=== PATIENT | male | born 1955 | race Caucasian/White ===

== ENCOUNTER 2019-08-22 16:22 | Inpatient (IN) | payer OTHER, MEDICARE ==
[~2019-08-22] VITALS: Ht 182.9 cm; Wt 107.4 kg
[~2019-08-22 16:22] MED LIST: ASPI81CH PO; ATOR10 PO; CARV3.125 PO; FURO40 PO; Prinivil10 MG PO
[2019-08-22 16:47] LABS: BASOPHILS ABSOLUTE AUTO 0.05 K/mm3 (0.00-0.23); BASOPHILS PERCENT AUTO 0 % (0-2); EOSINOPHILS ABSOLUTE AUTO 0.03 K/mm3 (0.00-0.68); EOSINOPHILS PERCENT AUTO 0 % (0-6); Hematocrit 25.1 % (37.0-53.0); Hemoglobin 8.4 g/dL (13.5-17.5); IMMATURE GRAN ABSOLUTE AUTO 0.24 K/mm3 (0.00-0.10); IMMATURE GRAN PERCENT AUTO 2 % (0-1); LYMPHOCYTES ABSOLUTE AUTO 4.19 K/mm3 (0.84-5.20); LYMPHOCYTES PERCENT AUTO 27 % (21-46); MONOCYTES ABSOLUTE AUTO 0.95 K/mm3 (0.16-1.47); MONOCYTES PERCENT AUTO 6 % (4-13); Mean Corpuscular HGB 29.3 pg (26.0-34.0); Mean Corpuscular HGB Conc 33.5 g/dL (31.5-36.5); Mean Corpuscular Volume 88 fL (80-100); Mean Platelet Volume 9.3 fL (9.1-12.4); NEUTROPHILS ABSOLUTE AUTO 10.11 K/mm3 (1.96-9.15); NEUTROPHILS PERCENT AUTO 65 % (41-73); Platelet Count 335 K/mm3 (150-400); RDW Coefficient Variation 12.2 % (11.7-14.2); RDW Standard Deviation 39.3 fL (35.1-46.3); Red Blood Cell Count 2.87 M/mm3 (4.30-5.90); White Blood Cell Count 15.57 K/mm3 (4.00-11.30)
[2019-08-22 17:08] LABS: Alanine Aminotransfer (ALT/SGP 24 U/L (12-78); Albumin, Blood 2.8 g/dL (3.4-5.0); Albumin/Globulin Ratio 0.9 (0.8-1.8); Alk Phos 56 U/L (50-136); Anion Gap 5 mmol/L (6-16); Aspartate Aminotrans (AST/SGOT 18 U/L (12-37); Bilirubin, Total 0.2 mg/dL (0.1-1.0); Blood Urea Nitrogen 52 mg/dL (8-24); Bun/Creatinine Ratio 45.6 (12.0-20.0); CO2, Blood 25 mmol/L (21-32); Calcium, Blood 7.8 mg/dL (8.5-10.1); Chloride, Blood 103 mmol/L (98-108); Creatinine, Blood 1.14 mg/dL (0.60-1.20); Glomerular Filtration Rate >60 (60-); Glucose, Blood 294 mg/dL (70-99); Potassium, Blood 4.5 mmol/L (3.5-5.5); Sodium, Blood 133 mmol/L (136-145); Total Protein, Blood 5.8 g/dL (6.4-8.2); Troponin I 0.015 ng/mL (0.000-0.040)
[2019-08-22] MEDS ORDERED: Buspirone HCl10 MG PO (19:59)
[2019-08-22] MEDS ORDERED: Carvedilol25 MG PO (19:59)
--- NOTE | 2019-08-22 21:45 | NUR ---
RECEIVED PT FROM [facility]. PT IS AWAKE AND OREINTED TO PERSON AND PLACE AND FOLLOWS COMMANDS. 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 PT IS ABLE TO COMMUNICATE HIS NEEDS AND A GOOD PORTION OF HIS PAST MEDICAL HISTORY. HE IS SLOW TO RESPOND HE HAS DIFFICULTY WITH HIS WORDS IF HE RESPONDS TOO QUICKLY. ECG SHOWS ST 100-110'S. SBP 90-110'S. LUNGS CLEAR. NO NOTED SOB. TOLERATNG SIPS OF WATER WITHOUT DIFFICULTY. PT DENIES NAUSEA, BUT REPORTS TENDERNESS TO LEFT, LOWER QUADRANT WITH PALPATION. PT INCONTINENT OF FOUL SMELLING URINE. PT STATES THAT HE HAS DIFFICULTY VOIDING AND ONLY VOIDS A SMALL AMOUNT AT A TIME. ESPERANZA CARE DONE AND ADULT PULL-UP PLACED. PT ABLE TO REPOSITON HIMSELF IN BED.
--- NOTE | 2019-08-22 22:30 | NUR ---
PT REPORTS 10/10 LEFT LOWER QUADRANT PAIN AND INTERMITTENT NAUSEA. DR. FOSTER NOTIFIED AND ORDER GIVEN FOR DILAUDID-SEE EMAR.
--- NOTE | 2019-08-23 | NUR ---
PT RESTING QUIETLY WHEN NOT DISTURBED-REPOSITONING HIMSELF IN BED FREQUENTLY.
--- NOTE | 2019-08-23 02:55 | NUR ---
PT STATES THAT HE IS FEELING "BETTER." PT SITTING UP IN BED WATCHING TV WITHOUT NOTED DISTRESS.
[2019-08-23 03:30] LABS: Hematocrit 22.2 % (37.0-53.0); Hemoglobin 7.4 g/dL (13.5-17.5); Mean Corpuscular HGB Conc 33.3 g/dL (31.5-36.5); Mean Corpuscular Volume 87 fL (80-100); Mean Platelet Volume 9.2 fL (9.1-12.4); Platelet Count 304 K/mm3 (150-400); RDW Coefficient Variation 12.5 % (11.7-14.2); RDW Standard Deviation 39.8 fL (35.1-46.3); Red Blood Cell Count 2.55 M/mm3 (4.30-5.90); White Blood Cell Count 14.79 K/mm3 (4.00-11.30)
[2019-08-23 03:49] LABS: Anion Gap 6 mmol/L (6-16); Blood Urea Nitrogen 52 mg/dL (8-24); Bun/Creatinine Ratio 42.3 (12.0-20.0); CO2, Blood 26 mmol/L (21-32); Calcium, Blood 7.9 mg/dL (8.5-10.1); Chloride, Blood 104 mmol/L (98-108); Creatinine, Blood 1.23 mg/dL (0.60-1.20); Glomerular Filtration Rate >60 (60-); Glucose, Blood 156 mg/dL (70-99); Potassium, Blood 4.4 mmol/L (3.5-5.5); Sodium, Blood 136 mmol/L (136-145); Troponin I <0.015 ng/mL (0.000-0.040)
--- NOTE | 2019-08-23 06:36 | NUR ---
PT HAS RESTED INTERMITTENTY SINCE MED WITH DILAUDID 1 MG IVP @ 2230. VS WDL-NO NOTED DISTRESS.
--- NOTE | 2019-08-23 06:49 | NUR ---
PT REPORTS 8/10 LLQ PAIN. PT MOANING AND WRITHING IN BED-MED WITH DILAUDID 0.5 MG IVP X 1.
--- NOTE | 2019-08-23 08:51 | NUR ---
ASSUMED CARE OF PT AT 0700. REPORT FROM DIANE GARCIA. PT RESTING IN BED. RESPONSIVE TO PAINFUL STIMULI. PT SLOW TO RESPOND, APHASIA. ANSWERS QUESTIONS APPROPRIATELY. FOLLOWS COMMANDS. REPORTS PAIN TO LLQ, MEDICATED ON NOC SHIFT, STATES PAIN IMPROVED. PT REPORTS LAST BM ONE WEEK AGO, STATES "I KNOW IM BLEEDING" REPORTS HX OF GI BLEEDS, REPORTS DARK STOOLS OVER LAST FEW WEEKS. ABD ROUND, SOFT, TENDER ON LEFT SIDE. BT X 4. LUNGS CLEAR. MAEW. PT TOLERATING CLEAR LIQUID DIET WELL. USES URINAL IN BED. HGB 7.4 THIS AM, CURRENTLY TRANSFUSING ONE UNIT PRBCS AT THIS TIME. VSS. WILL CONTINUE TO MONITOR.
--- NOTE | 2019-08-23 11:48 | NUR ---
Echocardiogram completed.
--- NOTE | 2019-08-23 13:20 | NUR ---
CARE ASSUMED CARE AND REPORT ASSUMED FROM BRENT GARCIA. PT SLEEPING IN BED, BUT EASILY AROUSABLE. REPORTS PAIN IMPROVING AFTER DILAUDID. VSS. PROTONIX GTT INFUSING. WILL CONTINUE TO MONITOR.
--- NOTE | 2019-08-23 15:44 | NUR ---
TRANSFER REPORT CALLED TO SACHA VIDAL RN ON MEDICAL FLOOR. PT TO BE TRANSFERRED BY WHEELCHAIR TO ROOM 356. WILL NOTIFY .
[2019-08-23 15:46] LABS: Hematocrit 22.6 % (37.0-53.0); Hemoglobin 7.5 g/dL (13.5-17.5)
--- NOTE | 2019-08-23 19:19 | NUR ---
SHIFT SUMMARY. 1557 PT TRANSFERED FROM ICU VIA W/C. PT TRANSFERED TO BED WITH CGA. PT IS PALE. VSS. H&H DRAWN AT 1600 REVEALED HGB OF 7.5, DR. VINSON NOTIFIED, RECIEVED ORDER FOR 1 UNIT PRBC, BLOOD TRANSFUSING AT THIS TIME AND PT TOLERATING WELL.
[2019-08-24 04:03] LABS: BASOPHILS ABSOLUTE AUTO 0.04 K/mm3 (0.00-0.23); BASOPHILS PERCENT AUTO 0 % (0-2); EOSINOPHILS ABSOLUTE AUTO 0.11 K/mm3 (0.00-0.68); EOSINOPHILS PERCENT AUTO 1 % (0-6); Hematocrit 23.7 % (37.0-53.0); IMMATURE GRAN ABSOLUTE AUTO 0.12 K/mm3 (0.00-0.10); IMMATURE GRAN PERCENT AUTO 1 % (0-1); LYMPHOCYTES ABSOLUTE AUTO 3.47 K/mm3 (0.84-5.20); LYMPHOCYTES PERCENT AUTO 34 % (21-46); MONOCYTES ABSOLUTE AUTO 0.86 K/mm3 (0.16-1.47); MONOCYTES PERCENT AUTO 8 % (4-13); Mean Corpuscular HGB 29.1 pg (26.0-34.0); Mean Corpuscular HGB Conc 33.8 g/dL (31.5-36.5); Mean Corpuscular Volume 86 fL (80-100); Mean Platelet Volume 8.9 fL (9.1-12.4); NEUTROPHILS PERCENT AUTO 55 % (41-73); NRBC ABSOLUTE 0.03 K/mm3 (0.00-0.02); NRBC Auto 0.3 /100 WBC (0.0-0.2); Platelet Count 254 K/mm3 (150-400); RDW Coefficient Variation 13.2 % (11.7-14.2); RDW Standard Deviation 40.3 fL (35.1-46.3); Red Blood Cell Count 2.75 M/mm3 (4.30-5.90)
[2019-08-24 04:22] LABS: Anion Gap 5 mmol/L (6-16); Blood Urea Nitrogen 24 mg/dL (8-24); Bun/Creatinine Ratio 27.6 (12.0-20.0); CO2, Blood 27 mmol/L (21-32); Calcium, Blood 8.2 mg/dL (8.5-10.1); Chloride, Blood 107 mmol/L (98-108); Creatinine, Blood 0.87 mg/dL (0.60-1.20); Glomerular Filtration Rate >60 (60-); Glucose, Blood 131 mg/dL (70-99); Sodium, Blood 139 mmol/L (136-145)
[2019-08-24 04:28] LABS: Percent Saturation 85.6 % (20.0-50.0)
--- NOTE | 2019-08-24 04:45 | NUR ---
SHIFT SUMMARY: PATIENT IS A&OX4, APHASIC AT TIMES BUT I ABLE TO MAKE NEEDS KNOWN. COMPLETED TRANSFUSION OF SECOND UNIT OF BLOOD, TOLERATED WELL. VS ARE STABLE BUT CONTINUES TO HAVE OCCASIONAL SHORT PERIODS OF BRADICARDIA 40-50'S DURING SLEEP. PATIENT IS ASYMPTOMATIC DURING THESE EPISODES. NPO SINCE MIDNIGHT FOR POSSIBLE EGD TODAY.
--- NOTE | 2019-08-24 11:43 | NUR ---
08/24/19 1143 CARMEN BEY History, Chart, Medications and Allergies reviewed before start of procedure. 3-LEAD EKG REVIEWED WITH PHYSICIAN PRIOR TO START OF PROCEDURE. O2 VIA N/C INTACT THROUGHOUT SEDATION/PROCEDURE. MONITOR INTACT WITH CONTINUOUS PULSE OXIMETRY AND INTERMITTENT BP. PATIENT DETERMINED TO BE ASA APPROPRIATE FOR PROPOFOL SEDATION PRIOR TO START OF PROCEDURE BY DR. CHRISTENSEN.
--- NOTE | 2019-08-24 18:25 | NUR ---
SHIFT SUMMARY. EGD COMPLETED THIS AFTERNOON, PT TOLERATED WELL. PT TOLERATING CLEAR LIQUIDS WITHOUT ISSUE. STILL NO BM, SUPPOSITORY GIVEN. PT DENIES SOB, N/V. PT REPORTS CHRONIC BACK PAIN, PAIN MANAGED WELL WITH CURRENT ORDERS.
[2019-08-25 04:15] LABS: BASOPHILS ABSOLUTE AUTO 0.03 K/mm3 (0.00-0.23); BASOPHILS PERCENT AUTO 0 % (0-2); EOSINOPHILS ABSOLUTE AUTO 0.12 K/mm3 (0.00-0.68); EOSINOPHILS PERCENT AUTO 1 % (0-6); Hematocrit 20.9 % (37.0-53.0); IMMATURE GRAN ABSOLUTE AUTO 0.06 K/mm3 (0.00-0.10); IMMATURE GRAN PERCENT AUTO 1 % (0-1); LYMPHOCYTES ABSOLUTE AUTO 3.18 K/mm3 (0.84-5.20); LYMPHOCYTES PERCENT AUTO 34 % (21-46); MONOCYTES ABSOLUTE AUTO 1.11 K/mm3 (0.16-1.47); MONOCYTES PERCENT AUTO 12 % (4-13); Mean Corpuscular HGB 29.4 pg (26.0-34.0); Mean Corpuscular HGB Conc 33.5 g/dL (31.5-36.5); Mean Corpuscular Volume 88 fL (80-100); Mean Platelet Volume 9.1 fL (9.1-12.4); NEUTROPHILS ABSOLUTE AUTO 4.89 K/mm3 (1.96-9.15); NEUTROPHILS PERCENT AUTO 52 % (41-73); NRBC ABSOLUTE 0.05 K/mm3 (0.00-0.02); NRBC Auto 0.5 /100 WBC (0.0-0.2); Platelet Count 245 K/mm3 (150-400); RDW Coefficient Variation 13.5 % (11.7-14.2); Red Blood Cell Count 2.38 M/mm3 (4.30-5.90); White Blood Cell Count 9.39 K/mm3 (4.00-11.30)
[2019-08-25 04:39] LABS: Percent Saturation 11.5 % (20.0-50.0)
--- NOTE | 2019-08-25 05:29 | NUR ---
0524 PHYSICIAN CORRESPONDENCE ALERTED ON-CALL HGB 7.0 DOWN FROM 8.0 PREVIOUSLY. RECIEVED 2U PRBC 08/24/19. ALSO HAD FLEXIBLE SIGMOIDOSCOPY & EGD WITH BIOPSIES WHICH DID NOT SHOW ANY ACTIVE BLEEDING. PATIENT APPEARS IN GOOD SPIRITS, STATES HUNGRY, DENIES ANY DIZZINESS. NEW ORDER TO TRANSFUSE 1U PRBC PER DR. AGARWAL.
--- NOTE | 2019-08-25 06:20 | NUR ---
SHIFT SUMMARY A/O, ABLE TO MAKE NEEDS KNOWN. COOPERATIVE WITH CARE. ANSWERS QUESTIONS APPROPRIATELY AND CALLS WHEN REMEMBERS; BED ALARM FOR SAFETY. C/O PAIN/DISCOMFRT X1 TO BACK; MEDICATED PER EMAR. BT HYPOACTIVE T/O; STATES FLATUS, NO BM OF YET. HGB 7.0, NEW ORDERS TO TRANSFUSE (SEE PREV RN NOTE). APPEARED TO REST OFF AND ON OVERNIGHT. WILL CONTINUE TO MONITOR. BED IN LOWEST POSITION. CALL LIGHT AND BELONGINGS WITHIN REACH. REPORT TO ONCOMING RN.
[2019-08-25 11:34] LABS: Hematocrit 23.9 % (37.0-53.0)
[2019-08-25 15:12] LABS: Hematocrit 24.3 % (37.0-53.0); Hemoglobin 8.3 g/dL (13.5-17.5)
--- NOTE | 2019-08-25 17:25 | NUR ---
PT AOX3 AND COOPERATIVE OF CARE. PT WILL BE NPO AT MIDNIGHT TONIGHT FOR COLONOSCOPY TOMORROW. PT RECIEVED ONE UNIT OF BLOOD TODAY AND TOLERATED WELL. HBG 8.3. PT DOING WELL NO DISTRESS NOTED AT THIS TIME. WILL CONTINUE TO MONITOR.
--- NOTE | 2019-08-25 17:57 | NUR ---
PT HAD 2 PAUSES AT 1239 ONE OF 3.57 THEN 4.1 PT HAD NOT SHOWN ANY SIGNS OF A PROBLEM. PT THEN HAD ONE PAUSE LATER IN THE DAY OF 3.[address] VINSON WAS NOTIFIED AND REQUESTED COREG BE DC'D AND BMP WITH MAG DRAWN.
[2019-08-25 19:07] LABS: Anion Gap 3 mmol/L (6-16); Blood Urea Nitrogen 11 mg/dL (8-24); CO2, Blood 28 mmol/L (21-32); Calcium, Blood 8.5 mg/dL (8.5-10.1); Chloride, Blood 107 mmol/L (98-108); Creatinine, Blood 0.85 mg/dL (0.60-1.20); Glomerular Filtration Rate >60 (60-); Glucose, Blood 125 mg/dL (70-99); Potassium, Blood 4.1 mmol/L (3.5-5.5); Sodium, Blood 138 mmol/L (136-145)
[2019-08-26 04:36] LABS: BASOPHILS ABSOLUTE AUTO 0.04 K/mm3 (0.00-0.23); BASOPHILS PERCENT AUTO 0 % (0-2); EOSINOPHILS PERCENT AUTO 1 % (0-6); Hematocrit 26.2 % (37.0-53.0); Hemoglobin 8.6 g/dL (13.5-17.5); IMMATURE GRAN ABSOLUTE AUTO 0.08 K/mm3 (0.00-0.10); IMMATURE GRAN PERCENT AUTO 1 % (0-1); LYMPHOCYTES ABSOLUTE AUTO 3.29 K/mm3 (0.84-5.20); LYMPHOCYTES PERCENT AUTO 32 % (21-46); MONOCYTES ABSOLUTE AUTO 1.23 K/mm3 (0.16-1.47); MONOCYTES PERCENT AUTO 12 % (4-13); Mean Corpuscular HGB 29.2 pg (26.0-34.0); Mean Corpuscular HGB Conc 32.8 g/dL (31.5-36.5); Mean Corpuscular Volume 89 fL (80-100); Mean Platelet Volume 9.3 fL (9.1-12.4); NEUTROPHILS ABSOLUTE AUTO 5.58 K/mm3 (1.96-9.15); NEUTROPHILS PERCENT AUTO 54 % (41-73); NRBC ABSOLUTE 0.02 K/mm3 (0.00-0.02); NRBC Auto 0.2 /100 WBC (0.0-0.2); Platelet Count 314 K/mm3 (150-400); RDW Standard Deviation 42.9 fL (35.1-46.3); Red Blood Cell Count 2.95 M/mm3 (4.30-5.90); White Blood Cell Count 10.32 K/mm3 (4.00-11.30)
--- NOTE | 2019-08-26 05:39 | NUR ---
SHIFT SUMMARY: VSS. AFEB. A/OX3. COMMUNICATES NEEDS. UP INDEPENDENTLY IN ROOM. COMPLETED BOWEL PREP BY MIDNIGHT AND HAS REMAINED NPO SINCE. DENIES ABD PAIN. NO N/V. MED X 1 FOR PAIN W/GOOD RESULTS. PT EAGER TO COMPLETE COLONOSCOPY AND IS HOPEFUL TO GO HOME TODAY. PT REPORTING FREQUENT LIQUID DARK COLORED STOOLS. WILL ATTEMPT TO VISUALIZE. IV FLUIDS CONTINOUS ORDERED.
--- NOTE | 2019-08-26 06:27 | NUR ---
STOOL CURRENTLY DARK BROWN, WATERY, WITH BLACK SPECKS.
--- NOTE | 2019-08-26 06:28 | NUR ---
SPOKE W/HOSPITALIST RE: TELEMETRY REPORT STATING PT HR DROPPED INTO THE 30'S SEVERAL TIMES SINCE ABOUT 0600. PT WAS SOUND ASLEEP. WOKE PT UP AND CHECKED A MANUAL PULSE, 58. PT STATES HE FEELS FINE. CALLED TELE MONITOR BACK AND WAS TOLD HR HAS INCREASED NOW TO 80'S W/PVC'S. DR. REYES STATES CONT TO MONITOR. NO CHANGES AT THIS TIME.
[2019-08-26] MEDS ORDERED: FEROSUL325 M1 PO (18:06)
== END 2019-08-26 19:18 | disposition home or self-care (01) | DRG 378 ==
LOC: ER 16:22 → MEDS 16:23 → ICUE 16:23 → ICUW 16:23 → ICUE 21:42 → MEDS 08-23 15:57
PROVIDERS: Emergency Medicine; Internal Medicine; Student in an Organized Health Care Education/Training Program; ADMIT Internal Medicine
PROC: 30233N1 Transfusion of Nonautologous Red Blood Cells into Peripheral Vein, Percutaneous Approach (ICD-10-PCS; 2019-08-22)
PROC: 0DB68ZX Excision of Stomach, Via Natural or Artificial Opening Endoscopic, Diagnostic (ICD-10-PCS; 2019-08-24)
PROC: 0DB48ZX Excision of Esophagogastric Junction, Via Natural or Artificial Opening Endoscopic, Diagnostic (ICD-10-PCS; 2019-08-24)
PROC: 30233N1 Transfusion of Nonautologous Red Blood Cells into Peripheral Vein, Percutaneous Approach (ICD-10-PCS; 2019-08-24)
PROC: 0DB98ZX Excision of Duodenum, Via Natural or Artificial Opening Endoscopic, Diagnostic (ICD-10-PCS; principal; 2019-08-24 11:30)
PROC: 0DB78ZX Excision of Stomach, Pylorus, Via Natural or Artificial Opening Endoscopic, Diagnostic (ICD-10-PCS; 2019-08-24 11:30)
PROC: 30233N1 Transfusion of Nonautologous Red Blood Cells into Peripheral Vein, Percutaneous Approach (ICD-10-PCS; 2019-08-25)
PROC: 0DBL8ZX Excision of Transverse Colon, Via Natural or Artificial Opening Endoscopic, Diagnostic (ICD-10-PCS; 2019-08-26)
PROC: 0DJD8ZZ Inspection of Lower Intestinal Tract, Via Natural or Artificial Opening Endoscopic (ICD-10-PCS; 2019-08-26)
DX: K29.81 Duodenitis with bleeding (principal); D62 Acute posthemorrhagic anemia; I50.20 Unspecified systolic (congestive) heart failure; I42.9 Cardiomyopathy, unspecified; E87.1 Hypo-osmolality and hyponatremia; I69.351 Hemiplegia and hemiparesis following cerebral infarction affecting right dominant side; K29.01 Acute gastritis with bleeding; K57.31 Diverticulosis of large intestine without perforation or abscess with bleeding; I11.0 Hypertensive heart disease with heart failure; F17.210 Nicotine dependence, cigarettes, uncomplicated; E11.9 Type 2 diabetes mellitus without complications; K59.09 Other constipation; K44.9 Diaphragmatic hernia without obstruction or gangrene; K63.5 Polyp of colon
CPT/HCPCS: 36415; 36430; 71045; 71275; 74177; 80048; 80053; 82607; 82728; 82746; 83540; 83550; 83735; 83880; 84484; 85014; 85018; 85025; 85027; 86850; 86900; 86901; 86923; 88305; 88342; 93005; 93010; 93306; 96361; 96374-59; 96375; 96376; 99285-25; C9113; G0378; J1170; J2250; J2405; J2704; J2916; J7030; J7050; J7120; P9016; Q9967

== ENCOUNTER 2024-09-23 13:49 | Inpatient (IN) | payer OTHER, MEDICARE ==
[~2024-09-23] VITALS: Ht 198.1 cm; Wt 117.5 kg
[~2024-09-23 13:49] MED LIST changes: +Buspirone HCl10 MG PO; +Carvedilol25 MG PO; +FEROSUL325 M1 PO
[2024-09-23] MEDS ORDERED: Ipratropium Bromide INH 0.02% 0.5 mg/2.5ML Vial INH SCH (14:20)
[2024-09-23] MEDS ORDERED: Albuterol 2.5 MG/3 ML VIAL INH SCH (14:20)
[2024-09-23 14:35] LABS: BASOPHILS ABSOLUTE AUTO 0.03 K/mm3 (0.00-0.23); BASOPHILS PERCENT AUTO 0 % (0-2); EOSINOPHILS ABSOLUTE AUTO 0.03 K/mm3 (0.00-0.68); EOSINOPHILS PERCENT AUTO 0 % (0-6); Hematocrit 45.3 % (37.0-53.0); Hemoglobin 14.5 g/dL (13.5-17.5); IMMATURE GRAN ABSOLUTE AUTO 0.03 K/mm3 (0.00-0.10); IMMATURE GRAN PERCENT AUTO 0 % (0-1); LYMPHOCYTES PERCENT AUTO 21 % (21-46); MONOCYTES ABSOLUTE AUTO 0.93 K/mm3 (0.16-1.47); MONOCYTES PERCENT AUTO 10 % (4-13); Mean Corpuscular HGB 29.3 pg (26.0-34.0); Mean Corpuscular Volume 92 fL (80-100); Mean Platelet Volume 9.9 fL (9.1-12.4); NEUTROPHILS ABSOLUTE AUTO 6.59 K/mm3 (1.96-9.15); NEUTROPHILS PERCENT AUTO 69 % (41-73); Platelet Count 300 K/mm3 (150-400); RDW Coefficient Variation 13.1 % (11.7-14.2); RDW Standard Deviation 44.2 fL (35.1-46.3); Red Blood Cell Count 4.95 M/mm3 (4.30-5.90); White Blood Cell Count 9.61 K/mm3 (4.00-11.30)
[2024-09-23 15:09] LABS: Albumin, Blood 3.2 g/dL (3.4-5.0); Albumin/Globulin Ratio 0.9 (0.8-1.8); Bilirubin, Total 0.5 mg/dL (0.1-1.0); Calcium, Blood 9.2 mg/dL (8.5-10.1); Creatinine, Blood 1.26 mg/dL (0.60-1.20); Globulin, Blood 3.6 g/dL (2.2-4.0); Potassium, Blood 4.1 mmol/L (3.5-5.5); Total Protein, Blood 6.8 g/dL (6.4-8.2)
[2024-09-23] MEDS ORDERED: Furosemide 10 MG/ML 4ML Vial IV ONE (15:35)
[2024-09-23] MEDS ORDERED: Aspirin 325 MG Tab PO ONE (15:45)
[2024-09-23] MEDS ORDERED: Morphine Sulfate 4 MG/1 ML Injection IV ONE (15:55)
[2024-09-23] MEDS ORDERED: Ondansetron HCl 2 MG / ML 2ML Vial IV PRN (17:30)
[2024-09-23 18:22] LABS: Source, Urine Clean Catch
[2024-09-23 18:31] LABS: Appearance, Urine Clear (Clear); Bilirubin, Urine Neg (Neg); Blood, Urine Neg (Neg); Color, Urine Yellow (P-Yellow); Glucose Qualitative, Urine 1+ (Neg); Ketones, Urine Neg (Neg); Leukocyte Esterase, Urine Neg (Neg); Nitrite, Urine Neg (Neg); Protein, Urine 3+ (Neg); Urobilinogen, Urine NORM (Normal)
[2024-09-23 18:41] LABS: Bacteria Mod /hpf; Hyaline Casts 0-2 /lpf (0-2); Red Blood Cells, Urine 0-2 /hpf (0-2); Squamous Epithelial Cells Many /hpf (Few); White Blood Cells, Urine 0-2 /hpf (0-5)
[2024-09-23] MEDS ORDERED: Insulin Human Lispro 100 Units/ML 3ML Syringe SC SCH (21:00)
[2024-09-23 21:56] VITALS: BP 139/105
[2024-09-23] MEDS ORDERED: METF500 PO (22:01)
[2024-09-24 03:22] VITALS: BP 146/100
--- NOTE | 2024-09-24 04:01 | NUR ---
SHIFT SUMMARY ADMITTED FOR CHF/NSTEMI. FULL CODE. PLAN IS TO DIURESE. TTE TO BE OBTAINED THIS MORNING ON DAY SHIFTY. TELEMETRY: TACH @ 103 BPM. ACHS CBG'S - LOW SS. REPORTS DYSPNEA W/EXERTION. BLE EDEMA 2+. HE DENIES CHEST PAIN. A&O X4, INDEPENDENT IN ROOM, ON RA.
[2024-09-24 05:57] LABS: Bun/Creatinine Ratio 19.5 (12.0-20.0); Calcium, Blood 8.8 mg/dL (8.5-10.1); Creatinine, Blood 1.28 mg/dL (0.60-1.20); Magnesium, Blood 1.9 mg/dL (1.6-2.4); Potassium, Blood 3.9 mmol/L (3.5-5.5)
[2024-09-24] MEDS ORDERED: Carvedilol 6.25 MG Tab PO SCH (08:00)
[2024-09-24 08:09] VITALS: BP 136/111
[2024-09-24] MEDS ORDERED: Lisinopril 10 MG Tab PO SCH (09:00)
[2024-09-24] MEDS ORDERED: Furosemide 10 MG/ML 4ML Vial IV SCH (09:00)
[2024-09-24] MEDS ORDERED: Atorvastatin 10 MG Tab PO SCH (09:00)
[2024-09-24] MEDS ORDERED: Enoxaparin 40 MG/0.4 ML SYR SC SCH (09:00)
[2024-09-24] MEDS ORDERED: Aspirin 81 MG Chew PO SCH (12:00)
[2024-09-24] MEDS ORDERED: Spironolactone 50 MG Tab PO SCH (12:00)
--- NOTE | 2024-09-24 15:30 | NUR ---
MET WITH PT THIS AFTERNOON PER BEDSIDE RN REQUEST. PT WAS RESTING WITH EYES CLOSED AT START OF VISIT. REVIEWED CPR VS DNR. PT STATED HE WOULD LIKE TO REMAIN A FULL CODE AT THIS TIME. PC TO REMAIN AVAILABLE.
[2024-09-24 16:20] VITALS: BP 104/85
[2024-09-24] MEDS ORDERED: ALPRAZolam 0.25 MG Tab PO PRN (16:40)
--- NOTE | 2024-09-24 17:18 | NUR ---
MET WITH PATIENT, HIS MANUEL, AND HIS DAUGHTER VIRGIL. DISCUSSED OPTIONS FOR TREATMENT. PROVIDER AT BEDSIDE AND RELAYED POOR EF OF 13%. DISCUSSED MEDICATION FOR IMPROVING CARDIAC FUNCTION. FOLLOWING UP WITH PROVIDER, AND CARDIAC MONITORING OUTPT. PATIENT EXPRESSED UNDERSTANDING. PATIENT AND DISCUSSED OPTIONS PRIVATELY, CAME OUT OF THE ROOM AND EXPRESSED THAT HE "WANTS TO GO HOME TO ". DISCUSSED WITH THE PATIENT AND HE AGREED TO HOSPICE AND GOING HOME. WE DISCUSSED CODE STATUS. CHANGING PT TO DNR. AND PATIENT ACTIVE IN THE DISCUSSION. UPDATED PROVIDER AND CODE STATUS CHANGED
--- NOTE | 2024-09-24 17:33 | NUR ---
SHIFT SUMMARY PATIENT ALERT AND INTERACTIVE. PATIENT USING URINAL TO VOID. FAMILY AT BEDSIDE MOST OF THE DAY. FAMILY STATE EDEMA GREATLY IMPROVED SINCE ADMISSION. FAMILY REPORT THAT PATIENT NOT TAKING HIS MEDS ORDERED BUT ALSO REPORT THAT HE HAS NOT SEEN A PCP FOR SOME TIME. UNCLEAR HOW IS GETTING MEDICATIONS. ECHO DONE. EF LOWER. PALLIATIVE CARE INVOLVED. PATIENT TO GO HOME ON HOSPICE. CODE STATUS CHANGED TO DNR. FAMILY TEARFUL BUT PATIENT PLEASED WITH DECISIONS OF CODE STATUSE AND GOING HOME ON HOSPICE.
[2024-09-24 19:22] VITALS: BP 106/69
[2024-09-24 23:28] VITALS: BP 124/90
[2024-09-25] MEDS ORDERED: Acetaminophen 325 MG TABLET PO PRN (01:55)
[2024-09-25 03:35] VITALS: BP 137/93
--- NOTE | 2024-09-25 03:55 | NUR ---
Pt is A&O x4 resting in bed. tylenol given for pain. tele in place and on RA. no complaints of chest pain. call light within reach.
[2024-09-25 04:34] LABS: Hematocrit 44.7 % (37.0-53.0); Hemoglobin 14.5 g/dL (13.5-17.5); Mean Corpuscular HGB 29.2 pg (26.0-34.0); Mean Corpuscular HGB Conc 32.4 g/dL (31.5-36.5); Mean Corpuscular Volume 90 fL (80-100); Mean Platelet Volume 10.5 fL (9.1-12.4); Platelet Count 277 K/mm3 (150-400); RDW Coefficient Variation 13.1 % (11.7-14.2); RDW Standard Deviation 43.1 fL (35.1-46.3); Red Blood Cell Count 4.96 M/mm3 (4.30-5.90); White Blood Cell Count 8.54 K/mm3 (4.00-11.30)
[2024-09-25 05:06] LABS: Anion Gap 11 mmol/L (3-11); Blood Urea Nitrogen 27 mg/dL (8-24); Bun/Creatinine Ratio 21.6 (12.0-20.0); CHOL/HDL RATIO 3.2; CO2, Blood 27 mmol/L (21-32); Calcium, Blood 8.8 mg/dL (8.5-10.1); Chloride, Blood 104 mmol/L (98-108); Cholesterol 139 mg/dL (50-200); Creatinine, Blood 1.25 mg/dL (0.60-1.20); Glomerular Filtration Rate 63 (60-); Glucose, Blood 180 mg/dL (70-99); HDL Cholesterol 44 mg/dL (>39); LDL/HDL RATIO 1.7; Low Density Lipoprotein Chol 75 mg/dL (0-110); Phosphorus, Blood 3.8 mg/dL (2.5-4.9); Potassium, Blood 4.4 mmol/L (3.5-5.5); Sodium, Blood 138 mmol/L (136-145); Triglycerides 98 mg/dL (30-160); Very Low Density Lipoprot Chol 19 mg/dL (6-32)
[2024-09-25] MEDS ORDERED: FentaNYL Citrate 50 MCG/ML 2 ML Injection IV PRN (05:10)
[2024-09-25 07:55] VITALS: BP 146/98
--- NOTE | 2024-09-25 08:03 | NUR ---
ASSUMPTION OF CARE: ASSUMED CARE OF PATIENT. AWAKE DURING SHIFT CHANGE REPORT. LYING IN BED c COLD COMPRESS ON HEAD. HAD JUST RECENTLY BEEN MEDICATED FOR PAIN BY BAG SEALER. DAUGHTER AND AND BEDSIDE; MANY QUESTIONS. LET THEM KNOW PROVIDERS WILL BE ROUNDING SOON. TELE SINUS c 1AVB, PAC AND PVC @ 89. SALINE LOCKED RIGHT AC. TACHYPNIC HAVING JUST BEEN PAINFUL AND HAVING SOME ANXIETY; WANTS TO WAIT FOR PAIN MEDS TO KICK IN. ROOM AIR. BED IN LOWEST POSITION. CALL LIGHT WITHIN REACH. NO ACUTE NEEDS.
[2024-09-25] MEDS ORDERED: Morphine Sulfate 20 MG/1ML 1 ML Oral Syringe SL ONE (08:55)
[2024-09-25] MEDS ORDERED: Empagliflozin 10 MG TAB PO SCH (09:00)
--- NOTE | 2024-09-25 10:34 | NUR ---
PLACED ORDER FOR ROXANOL FOR MANAGEMENT OF DYSPNEA/PAIN. PLAN: D/C HOME ON HOSPICE
[2024-09-25] MEDS ORDERED: Morphine Sulfate 20 MG/1ML 1 ML Oral Syringe PO PRN (10:35)
--- NOTE | 2024-09-25 11:35 | NUR ---
PATIENT RESTLESS AND THRASHING IN BED. TOSSING BACK AND FORTH MOANING. WHEN ASKED IF HE IS HAVING DIFFICULTY BREATHING HE RESPONDS "NO". WHEN ASKED WHERE HE IS HURTING HE RESPONDS "EVERYWHERE". O2 PLACED FOR COMFORT AND DYSPNEA, BUT PATIENT REMOVING FROM FACE. 10mg ROXANOL ADMINISTERED.
--- NOTE | 2024-09-25 15:10 | NUR ---
CASE CONFRENCE- DISCUSSED PLAN WITH PROVIDER AND CARE COORDINATION. PT IS WANTING TO GO HOME WITH HOSPICE TODAY. BEDSIDE RN REPORTED PT WAS PAINFUL AND SOB. JIMMY ORDERED, WORKED WELL FOR [facility].
--- NOTE | 2024-09-25 16:01 | NUR ---
DISCHARGE SUMMARY: A&Ox3-4. MOSTLY PLEASANT AND COOPERATIVE WITH CARE. PATIENT ABLE TO ADVOCATE NEEDS WHEN ASKED, BUT DOES NOT UTILIZE CALL LIGHT; FAMILY CALLS FOR ASSISTANCE. STAND-PIVOT FOR AMBULATION AND IS VERY UNSTABLE; URINAL FOR VOIDING. NO BM TODAY. MEDS WHOLE c FLUIDS. TELE [employer] HEART BLOCK c PACs AND PVCs @ 89. LABORED BREATHING c RETRACTIONS; PLACED ON 2LPM/NC FOR COMFORT. MEDICATED PRN MORPHINE WHICH SEEMED TO HELP FOR C/O "PAIN ALL OVER". [facility]. PATIENT DISCHARGED HOME c HOSPICE AND WILL BE MET @ HOME c HOSPICE NURSE FOR ADMIT. LEFT FLOOR AT 1400 WITH ALL BELONGINGS AND DISCHARGE PACKET, ESCORTED BY DAUGHTER AND . TRANSPORTATION PROVIDED BY VIA POV.
== END 2024-09-25 14:32 | disposition hospice, home (50) | DRG 280 ==
LOC: ER 13:49 → ERHOLD 17:23 → MEDS 17:23
PROVIDERS: Internal Medicine; Nurse Practitioner Acute Care; Physician Assistant; ADMIT Internal Medicine
DX: I11.0 Hypertensive heart disease with heart failure (principal); I50.23 Acute on chronic systolic (congestive) heart failure; I21.A1 Myocardial infarction type 2; N17.9 Acute kidney failure, unspecified; F17.210 Nicotine dependence, cigarettes, uncomplicated; E11.9 Type 2 diabetes mellitus without complications; Z51.5 Encounter for palliative care; E66.01 Morbid (severe) obesity due to excess calories; E78.5 Hyperlipidemia, unspecified; I27.20 Pulmonary hypertension, unspecified; Z79.811 Long term (current) use of aromatase inhibitors; Z79.899 Other long term (current) drug therapy; Z91.030 Bee allergy status; Z86.73 Personal history of transient ischemic attack (TIA), and cerebral infarction without residual deficits; Z68.31 Body mass index [BMI] 31.0-31.9, adult; Z91.148 Patient's other noncompliance with medication regimen for other reason
CPT/HCPCS: 36415; 71046; 80048; 80053; 80061; 80069; 81001; 82947; 83735; 83880; 84484; 85025; 85027; 93005; 93010; 94644; 94664; 96372; 96374; 96375; 96376; 99285-25; A9270; C8929; G0378; J1650; J1938; J2270; J3010; Q9957